=== PATIENT | male | born 1970 | race Caucasian/White ===

== ENCOUNTER → 2020-04-01 | Outpatient (CLI) | payer OTHER ==
[~2020-04-01] MED LIST: CENTRUM COMPLE1 EACH PO; IBUPROFEN 600600 M1 PO; ZOFRAN 4 MG ORAL4 MG PO
== END ==
LOC: LAB 13:21
PROVIDERS: ATTEND Internal Medicine Pulmonary Disease
DX: Z01.812 Encounter for preprocedural laboratory examination (principal); Z20.828 Contact with and (suspected) exposure to other viral communicable diseases

== ENCOUNTER → 2020-07-22 | Outpatient (CLI) | payer OTHER | LOC: LAB 14:29 | PROVIDERS: ATTEND Nurse Practitioner | DX: Z20.828 Contact with and (suspected) exposure to other viral communicable diseases (principal) ==